=== PATIENT | male | born 1955 | race Caucasian/White ===

== ENCOUNTER 2021-01-20 13:28 | Inpatient (IN) ==
[2021-01-20 20:29] LABS: Basophils # 0.1 K/mcL (0.0-0.2); Basophils % 0.6 %; Eosinophils # 0.2 K/mcL (0.0-0.6); Eosinophils % 2.2 %; Hematocrit 47.3 % (37.5-50.1); Hemoglobin 14.4 g/dL (12.9-16.9); Immature Granulocytes % 0.2 % (0-4); Lymphocytes # 1.9 K/mcL (0.6-4.6); Lymphocytes % 18.3 %; Mean Corpuscular HGB Conc 30.4 g/dL (31.6-35.5); Mean Corpuscular Hemoglobin 25.9 pg (28.0-33.3); Mean Corpuscular Volume 85.2 fL (83.0-100.0); Mean Platelet Volume 13.2 fL (9.4-12.4); Monocytes # 0.6 K/mcL (0.0-1.3); Monocytes % 5.2 %; Neutrophils # 7.8 K/mcL (1.6-8.9); Platelet Count 236 K/mcL (140-400); Red Blood Count 5.55 M/mcL (4.19-5.50); Red Cell Distribution Width 17.6 % (11.5-14.5); Segmented Neutrophils % 73.5 %; White Blood Count 10.5 K/mcL (4.3-11.1)
[2021-01-20 20:38] LABS: INR 3.3; Prothrombin Time 37.2 Seconds (9.4-12.1)
[2021-01-20 20:41] LABS: Activated Partial Thrombo Time 54.7 Seconds (26.0-36.0)
[2021-01-20 20:52] LABS: Alanine Aminotransferase 19 Units/L (7-52); Albumin 4.1 g/dL (3.5-5.7); Albumin/Globulin Ratio 1.2 (1.1-2.2); Alkaline Phosphatase 94 Units/L (34-104); Aspartate Amino Transferase 16 Units/L (13-39); BUN/Creatinine Ratio 18 (6-26); Bilirubin,Total 1.3 mg/dL (0.3-1.0); Blood Urea Nitrogen 25 mg/dL (8-23); Calcium 8.9 mg/dL (8.6-10.3); Carbon Dioxide 23 mEq/L (23-29); Chloride 102 mEq/L (98-107); Globulin 3.3 g/dL (2.4-3.5); Glucose 308 mg/dL (70-105); Magnesium 2.2 mg/dL (1.6-2.6); Osmolality,Calculated 290 (280-300); Potassium 4.8 mEq/L (3.5-5.1); Sodium 132 mEq/L (136-145); Total Protein 7.4 g/dL (6.4-8.9); Troponin I 0.05 ng/mL (< 0.04); eGFR For African Americans > 60 (> 60); eGFR For Non-African Americans 51 (> 60)
[2021-01-20] MEDS ORDERED: Morphine Sulfate 2 MG/ML SYRINGE IVP ONE (20:57)
[2021-01-20] MEDS ORDERED: Nitroglycerin 0.4 MG TAB.SUBL SL PRN (20:57)
[2021-01-20] MEDS ORDERED: Naloxone 0.4 MG/ML INJ IVP PRN (22:25)
[2021-01-20] MEDS ORDERED: Acetaminophen 325 MG TABLET PO PRN (22:31)
[2021-01-20] MEDS ORDERED: Ondansetron 4 MG/2 ML VIAL IVP PRN (22:31)
[2021-01-20] MEDS ORDERED: *HR* Heparin 5,000 UNIT/ML VIAL IVP ONE (22:42)
[2021-01-20] MEDS ORDERED: *HR* Heparin 5,000 UNIT/ML VIAL IVP PRN ×2 (22:42)
[2021-01-20] MEDS ORDERED: D5% in Water 1,000 ML IVC PRN (22:42)
[2021-01-20] MEDS ORDERED: *HR* Dextrose 50 % in Water (Vial) 50 ML VIAL IVP PRN (22:42)
[2021-01-20] MEDS ORDERED: Dextrose Gel 15 GM/37.5 ML TUBE PO PRN ×2 (22:42)
[2021-01-20] MEDS ORDERED: Heparin 25,000UNIT/250ML 1/2NS 25,000 UNIT/250 ML IV.SOLN IVC SCH (22:45)
[2021-01-21] MEDS: amLODIPine 5 MG TABLET PO SCH ×2 (00:32→20:46)
[2021-01-21] MEDS: Insulin LISPRO 300 UNITS/3 ML VIAL SUBQ SCH ×4 (00:35→16:11)
[2021-01-21 03:07] LABS: Hematocrit 44.5 % (37.5-50.1); Hemoglobin 13.5 g/dL (12.9-16.9); Mean Corpuscular HGB Conc 30.3 g/dL (31.6-35.5); Mean Corpuscular Volume 85.6 fL (83.0-100.0); Mean Platelet Volume 12.9 fL (9.4-12.4); Platelet Count 237 K/mcL (140-400); Red Cell Distribution Width 17.7 % (11.5-14.5); White Blood Count 10.4 K/mcL (4.3-11.1)
[2021-01-21 03:15] LABS: INR 3.5; Prothrombin Time 38.7 Seconds (9.4-12.1)
[2021-01-21 03:18] LABS: Estimated Average Glucose 171 mg/dl; Hemoglobin A1C 7.6 %
[2021-01-21 03:24] LABS: Calcium 8.7 mg/dL (8.6-10.3); Chol/HDL Ratio 4.4 (0-4.9); Potassium 4.2 mEq/L (3.5-5.1)
[2021-01-21] MEDS ORDERED: amLODIPine 5 MG TABLET PO SCH (09:00)
[2021-01-21] MEDS: Metoprolol XL (24 HR) Succ 25 MG TAB.ER.24H PO SCH (13:17)
[2021-01-21] MEDS: Aspirin Enteric Coated 81 MG Tablet PO SCH (13:17)
[2021-01-22 06:48] LABS: Hematocrit 46.4 % (37.5-50.1); Hemoglobin 14.4 g/dL (12.9-16.9); Mean Corpuscular Hemoglobin 27.1 pg (28.0-33.3); Mean Corpuscular Volume 87.2 fL (83.0-100.0); Mean Platelet Volume 12.1 fL (9.4-12.4); Platelet Count 216 K/mcL (140-400); Red Blood Count 5.32 M/mcL (4.19-5.50); White Blood Count 9.2 K/mcL (4.3-11.1)
[2021-01-22 06:59] LABS: INR 2.3; Prothrombin Time 25.6 Seconds (9.4-12.1)
[2021-01-22 07:46] LABS: BUN/Creatinine Ratio 21 (6-26); Blood Urea Nitrogen 29 mg/dL (8-23); Calcium 8.7 mg/dL (8.6-10.3); Carbon Dioxide 19 mEq/L (23-29); Chloride 106 mEq/L (98-107); Glucose 272 mg/dL (70-105); Osmolality,Calculated 293 (280-300); Potassium 5.2 mEq/L (3.5-5.1); Sodium 134 mEq/L (136-145); eGFR For African Americans > 60 (> 60); eGFR For Non-African Americans 51 (> 60)
[2021-01-22] MEDS ORDERED: *HR* Heparin 5,000 UNIT/ML VIAL IVP ONE (08:04)
[2021-01-22] MEDS ORDERED: *HR* Heparin 5,000 UNIT/ML VIAL IVP PRN ×2 (08:04)
[2021-01-22] MEDS: Aspirin Enteric Coated 81 MG Tablet PO SCH (08:29)
[2021-01-22] MEDS: Metoprolol XL (24 HR) Succ 25 MG TAB.ER.24H PO SCH (08:30)
[2021-01-22] MEDS: Insulin LISPRO 300 UNITS/3 ML VIAL SUBQ SCH ×3 (08:30→16:17)
[2021-01-22] MEDS: Heparin 25,000UNIT/250ML 1/2NS 25,000 UNIT/250 ML IV.SOLN IVC SCH (08:57)
[2021-01-22 09:46] LABS: Hematocrit 45.4 % (37.5-50.1); Hemoglobin 13.7 g/dL (12.9-16.9); Mean Corpuscular HGB Conc 30.2 g/dL (31.6-35.5); Mean Corpuscular Hemoglobin 26.1 pg (28.0-33.3); Mean Corpuscular Volume 86.6 fL (83.0-100.0); Mean Platelet Volume 13.5 fL (9.4-12.4); Platelet Count 234 K/mcL (140-400); Red Blood Count 5.24 M/mcL (4.19-5.50); Red Cell Distribution Width 17.9 % (11.5-14.5); White Blood Count 10.2 K/mcL (4.3-11.1)
[2021-01-22 10:02] LABS: Heparin anti-factor XA UFH < 0.04 IU/mL (0.30-0.70)
[2021-01-22 10:03] LABS: INR 2.1; Prothrombin Time 24.3 Seconds (9.4-12.1)
[2021-01-22] MEDS: amLODIPine 5 MG TABLET PO SCH (21:25)
[2021-01-23] MEDS: Heparin 25,000UNIT/250ML 1/2NS 25,000 UNIT/250 ML IV.SOLN IVC SCH (01:15)
[2021-01-23 08:22] LABS: Hematocrit 44.3 % (37.5-50.1); Hemoglobin 13.3 g/dL (12.9-16.9); Mean Corpuscular Hemoglobin 25.7 pg (28.0-33.3); Mean Corpuscular Volume 85.5 fL (83.0-100.0); Platelet Count 223 K/mcL (140-400); Red Blood Count 5.18 M/mcL (4.19-5.50); Red Cell Distribution Width 17.5 % (11.5-14.5); White Blood Count 10.1 K/mcL (4.3-11.1)
[2021-01-23 08:32] LABS: Basophils # 0.1 K/mcL (0.0-0.2); Basophils % 1.2 %; Eosinophils # 0.4 K/mcL (0.0-0.6); Eosinophils % 4.1 %; Immature Granulocytes % 0.5 % (0-4); Lymphocytes # 2.4 K/mcL (0.6-4.6); Lymphocytes % 23.7 %; Monocytes # 0.7 K/mcL (0.0-1.3); Monocytes % 6.4 %; Neutrophils # 6.5 K/mcL (1.6-8.9); Segmented Neutrophils % 64.1 %
[2021-01-23 08:34] LABS: INR 1.7
[2021-01-23 08:43] LABS: Alanine Aminotransferase 17 Units/L (7-52); Albumin 3.8 g/dL (3.5-5.7); Albumin/Globulin Ratio 1.2 (1.1-2.2); Alkaline Phosphatase 77 Units/L (34-104); Aspartate Amino Transferase 14 Units/L (13-39); BUN/Creatinine Ratio 20 (6-26); Bilirubin,Total 1.4 mg/dL (0.3-1.0); Blood Urea Nitrogen 28 mg/dL (8-23); Calcium 8.8 mg/dL (8.6-10.3); Carbon Dioxide 25 mEq/L (23-29); Chloride 105 mEq/L (98-107); Globulin 3.3 g/dL (2.4-3.5); Glucose 250 mg/dL (70-105); Osmolality,Calculated 298 (280-300); Potassium 4.5 mEq/L (3.5-5.1); Sodium 137 mEq/L (136-145); Total Protein 7.1 g/dL (6.4-8.9); eGFR For African Americans > 60 (> 60); eGFR For Non-African Americans 52 (> 60)
[2021-01-23] MEDS: Insulin LISPRO 300 UNITS/3 ML VIAL SUBQ SCH ×3 (09:26→18:05)
[2021-01-23] MEDS: Metoprolol XL (24 HR) Succ 25 MG TAB.ER.24H PO SCH (09:28)
[2021-01-23] MEDS: Aspirin Enteric Coated 81 MG Tablet PO SCH (09:28)
[2021-01-23] MEDS ORDERED: 0.9 % Sodium Chloride 1,000 ML IVC SCH ×2 (09:45→14:30)
[2021-01-23] MEDS ORDERED: 0.9 % Sodium Chloride 2,000 ML ONE (12:40)
[2021-01-23] MEDS ORDERED: Heparin 1,000 UNITS/500 mL 500 ML ONE (12:41)
[2021-01-23] MEDS ORDERED: *HR* Heparin 10,000 UNIT/10 ML VIAL ONE (12:41)
[2021-01-23] MEDS ORDERED: Nitroglycerin 1,000 MCG/5 ML VIAL IV ONE (12:41)
[2021-01-23] MEDS ORDERED: ISOVUE-370 200 ML INFUS..BTL ONE (12:41)
[2021-01-23] MEDS ORDERED: *HR* Midazolam HCl 2 MG/2 ML VIAL ONE (13:06)
[2021-01-23] MEDS ORDERED: *HR* FentaNYL (PF) 100 MCG/2 ML VIAL ONE (13:07)
[2021-01-23] MEDS ORDERED: Warfarin 0.5 MG, Warfarin 4 MG PO ONE (18:00)
[2021-01-23] MEDS ORDERED: Warfarin perPT PO PRN (18:00)
[2021-01-23] MEDS: Isosorbide MONOnitrate (24 HR) 30 MG TAB.ER.24H PO SCH (18:05)
[2021-01-23] MEDS: amLODIPine 5 MG TABLET PO SCH (20:38)
[2021-01-24] MEDS ORDERED: Mag Hydrox/Al Hydrox/Simeth 30 ML UDC PO PRN (01:49)
[2021-01-24] MEDS: Heparin 25,000UNIT/250ML 1/2NS 25,000 UNIT/250 ML IV.SOLN IVC SCH ×2 (05:22→16:58)
[2021-01-24 05:56] LABS: Heparin anti-factor XA UFH 0.34 IU/mL (0.30-0.70)
[2021-01-24 05:57] LABS: INR 1.4
[2021-01-24 06:13] LABS: Alanine Aminotransferase 15 Units/L (7-52); Albumin 3.8 g/dL (3.5-5.7); Albumin/Globulin Ratio 1.4 (1.1-2.2); Alkaline Phosphatase 69 Units/L (34-104); Aspartate Amino Transferase 15 Units/L (13-39); BUN/Creatinine Ratio 19 (6-26); Bilirubin,Total 1.2 mg/dL (0.3-1.0); Blood Urea Nitrogen 26 mg/dL (8-23); Calcium 8.6 mg/dL (8.6-10.3); Carbon Dioxide 23 mEq/L (23-29); Chloride 105 mEq/L (98-107); Globulin 2.8 g/dL (2.4-3.5); Glucose 273 mg/dL (70-105); Osmolality,Calculated 294 (280-300); Potassium 4.8 mEq/L (3.5-5.1); Sodium 135 mEq/L (136-145); Total Protein 6.6 g/dL (6.4-8.9); eGFR For African Americans > 60 (> 60); eGFR For Non-African Americans 52 (> 60)
[2021-01-24 07:08] LABS: Red Cell Distribution Width 17.5 % (11.5-14.5)
[2021-01-24 07:10] LABS: Hematocrit 39.8 % (37.5-50.1); Immature Platelets 13.8 % (1.1-6.1); Mean Corpuscular HGB Conc 30.2 g/dL (31.6-35.5); Mean Corpuscular Hemoglobin 25.8 pg (28.0-33.3); Mean Corpuscular Volume 85.6 fL (83.0-100.0); Red Blood Count 4.65 M/mcL (4.19-5.50); White Blood Count 9.2 K/mcL (4.3-11.1)
[2021-01-24] MEDS: Insulin LISPRO 300 UNITS/3 ML VIAL SUBQ SCH ×3 (09:12→21:06)
[2021-01-24] MEDS: Metoprolol XL (24 HR) Succ 25 MG TAB.ER.24H PO SCH ×2 (10:30→17:05)
[2021-01-24] MEDS: Isosorbide MONOnitrate (24 HR) 30 MG TAB.ER.24H PO SCH ×2 (10:30→17:02)
[2021-01-24] MEDS: Aspirin Enteric Coated 81 MG Tablet PO SCH (17:05)
[2021-01-24] MEDS ORDERED: Warfarin 4 MG, Warfarin 0.5 MG PO ONE (18:00)
[2021-01-25] MEDS: Heparin 25,000UNIT/250ML 1/2NS 25,000 UNIT/250 ML IV.SOLN IVC SCH ×3 (03:47→21:20)
[2021-01-25 05:48] LABS: Hematocrit 39.7 % (37.5-50.1); Hemoglobin 12.1 g/dL (12.9-16.9); Mean Corpuscular HGB Conc 30.5 g/dL (31.6-35.5); Mean Corpuscular Hemoglobin 26.7 pg (28.0-33.3); Mean Corpuscular Volume 87.4 fL (83.0-100.0); Mean Platelet Volume 13.1 fL (9.4-12.4); Platelet Count 186 K/mcL (140-400); Red Blood Count 4.54 M/mcL (4.19-5.50); Red Cell Distribution Width 17.4 % (11.5-14.5); White Blood Count 9.2 K/mcL (4.3-11.1)
[2021-01-25 05:55] LABS: INR 1.6; Prothrombin Time 18.2 Seconds (9.4-12.1)
[2021-01-25 06:00] LABS: Alanine Aminotransferase 13 Units/L (7-52); Albumin 3.6 g/dL (3.5-5.7); Albumin/Globulin Ratio 1.3 (1.1-2.2); Alkaline Phosphatase 69 Units/L (34-104); Aspartate Amino Transferase 10 Units/L (13-39); BUN/Creatinine Ratio 16 (6-26); Blood Urea Nitrogen 21 mg/dL (8-23); Calcium 8.4 mg/dL (8.6-10.3); Carbon Dioxide 24 mEq/L (23-29); Chloride 108 mEq/L (98-107); Globulin 2.7 g/dL (2.4-3.5); Glucose 233 mg/dL (70-105); Osmolality,Calculated 294 (280-300); Potassium 4.6 mEq/L (3.5-5.1); Sodium 137 mEq/L (136-145); Total Protein 6.3 g/dL (6.4-8.9); eGFR For African Americans > 60 (> 60); eGFR For Non-African Americans 55 (> 60)
[2021-01-25] MEDS: Aspirin Enteric Coated 81 MG Tablet PO SCH (07:59)
[2021-01-25] MEDS: Metoprolol XL (24 HR) Succ 25 MG TAB.ER.24H PO SCH (08:00)
[2021-01-25] MEDS: Isosorbide MONOnitrate (24 HR) 30 MG TAB.ER.24H PO SCH (08:00)
[2021-01-25] MEDS: Insulin LISPRO 300 UNITS/3 ML VIAL SUBQ SCH ×4 (08:01→21:20)
[2021-01-25] MEDS ORDERED: Warfarin 4 MG, Warfarin 0.5 MG PO ONE (18:00)
[2021-01-26] MEDS: Heparin 25,000UNIT/250ML 1/2NS 25,000 UNIT/250 ML IV.SOLN IVC SCH (03:43)
[2021-01-26 05:49] LABS: Mean Corpuscular HGB Conc 30.3 g/dL (31.6-35.5); Mean Corpuscular Hemoglobin 26.6 pg (28.0-33.3); Red Cell Distribution Width 17.5 % (11.5-14.5)
[2021-01-26 05:50] LABS: Hematocrit 45.6 % (37.5-50.1); Hemoglobin 13.8 g/dL (12.9-16.9); Immature Platelets 11.6 % (1.1-6.1); Mean Corpuscular Volume 87.9 fL (83.0-100.0); Mean Platelet Volume 13.2 fL (9.4-12.4); Red Blood Count 5.19 M/mcL (4.19-5.50); White Blood Count 10.9 K/mcL (4.3-11.1)
[2021-01-26 06:00] LABS: INR 1.8; Prothrombin Time 20.8 Seconds (9.4-12.1)
[2021-01-26 06:08] LABS: Alanine Aminotransferase 19 Units/L (7-52); Albumin 3.9 g/dL (3.5-5.7); Albumin/Globulin Ratio 1.1 (1.1-2.2); Alkaline Phosphatase 79 Units/L (34-104); Aspartate Amino Transferase 15 Units/L (13-39); BUN/Creatinine Ratio 14 (6-26); Bilirubin,Total 1.2 mg/dL (0.3-1.0); Blood Urea Nitrogen 16 mg/dL (8-23); Calcium 8.9 mg/dL (8.6-10.3); Carbon Dioxide 26 mEq/L (23-29); Chloride 102 mEq/L (98-107); Globulin 3.4 g/dL (2.4-3.5); Glucose 253 mg/dL (70-105); Osmolality,Calculated 288 (280-300); Potassium 4.6 mEq/L (3.5-5.1); Sodium 134 mEq/L (136-145); Total Protein 7.3 g/dL (6.4-8.9); eGFR For African Americans > 60 (> 60); eGFR For Non-African Americans > 60 (> 60)
[2021-01-26] MEDS: Insulin LISPRO 300 UNITS/3 ML VIAL SUBQ SCH ×4 (08:16→21:03)
[2021-01-26] MEDS: Metoprolol XL (24 HR) Succ 25 MG TAB.ER.24H PO SCH (08:17)
[2021-01-26] MEDS: Aspirin Enteric Coated 81 MG Tablet PO SCH (08:17)
[2021-01-26] MEDS ORDERED: Warfarin 4 MG, Warfarin 0.5 MG PO ONE (18:00)
[2021-01-27] MEDS: Heparin 25,000UNIT/250ML 1/2NS 25,000 UNIT/250 ML IV.SOLN IVC SCH (01:26)
[2021-01-27 05:38] LABS: Prothrombin Time 22.5 Seconds (9.4-12.1)
[2021-01-27] MEDS: Metoprolol XL (24 HR) Succ 25 MG TAB.ER.24H PO SCH (08:39)
[2021-01-27] MEDS: Aspirin Enteric Coated 81 MG Tablet PO SCH (08:39)
[2021-01-27] MEDS: Insulin LISPRO 300 UNITS/3 ML VIAL SUBQ SCH (08:39)
[2021-01-27] MEDS ORDERED: *HR* Enoxaparin 120 MG/0.8 ML SYRINGE SQ STA (09:25)
[2021-01-27 10:11] VITALS: BP 118/67
[2021-01-27] MEDS ORDERED: *HR* Warfarin 5 MG TABLET PO ONE (18:00)
== END 2021-01-27 12:04 | disposition home or self-care (01) | DRG 287 ==
LOC: 3BNU → SUATTDRO 18:17
PROVIDERS: ADMIT General Practice; ATTEND Registered Nurse